=== PATIENT | female | born 1985 | race Caucasian/White ===

== ENCOUNTER 2018-03-19 19:35 | Emergency (ER) | payer OTHER ==
[~2018-03-19] VITALS: Ht 167.6 cm; Wt 84.1 kg
[2018-03-19] MEDS ORDERED: AUGMENTIN875 MG PO (20:56)
[2018-03-19] MEDS ORDERED: PERCOCET 5/31 TABLET PO (20:56)
[2018-03-19 21:15] VITALS: BP 134/94
== END 2018-03-19 21:16 | disposition home or self-care (01) ==
LOC: EME 19:35
DX: L08.9 Local infection of the skin and subcutaneous tissue, unspecified (principal); J44.9 Chronic obstructive pulmonary disease, unspecified; Z87.891 Personal history of nicotine dependence; Z88.1 Allergy status to other antibiotic agents
CPT/HCPCS: 73140; 99281; 99284